=== PATIENT | male | born 1955 | race African-American/Black ===

== ENCOUNTER 2023-09-10 08:30 | Day surgery (SDC) | payer MEDICARE ==
[2023-09-10] MEDS ORDERED: MIDAZOLAM HCL 2 MG/2 ML INJ ONE (09:04)
[2023-09-10] MEDS ORDERED: FENTANYL CITR 100 MCG/2 ML ONE (09:05)
[2023-09-10] MEDS ORDERED: NALOXONE HCL 2 MG/2 ML VIAL ONE (09:05)
[2023-09-10] MEDS ORDERED: FLUMAZENIL 0.1 MG/ML (5 mL VIAL) IV ONE (09:07)
[2023-09-10] MEDS ORDERED: NA CHLORIDE 0.9% 1,000 ML ONE (09:11)
[2023-09-10 09:14] LABS: Absolute Lymphocytes (CBC) 4.7 K/uL (0.7-4.9); Hematocrit 34.6 % (39.6-49.0); Lymphocytes % 2.6 % (15.3-44.8); MCV 87.6 fL (80-100); MPV 8.3 fL (7.6-11.3); Platelets 520 thou/uL (152-406); RBC Red Blood Cell Count 3.95 M/uL (4.33-5.43)
[2023-09-10 09:55] LABS: Protime INR 1.15
[2023-09-10 11:51] LABS: Anisocytosis 1+; Blood Morphology Comment NOTED (NOT SEEN); Platelet Estimate INCR; Platelets, Giant FEW
[2023-09-10 12:23] LABS: Cytogenetics, Bone Marrow SENT
--- NOTE | 2023-09-10 14:24 | RAD REPORT ---
EXAM DESCRIPTION: - Bone Marrow Biopsy - 09/10/2023 11:52 am CLINICAL HISTORY: bone marrow bx COMPARISON: No comparisons FINDINGS: Preoperative diagnosis: CML Post operative diagnosis: Same Conscious Sedation: 1 milligram Versed, and 50 microgram fentanyl. Total sedation time: 22 minutes. Patient was continuously monitored by nursing staff. Contrast used: NONE Estimated blood loss: less than 5 mL Specimens: 1 bone core. 1 mL or less bone marrow aspirate. Informed consent was obtained, following discussion of the risks and benefits of the procedure with t he patient. The patient was placed prone on the table and the right sacral area was prepped and drape d in the usual sterile fashion. At least 10 mL of 1% lidocaine was infiltrated into the subcutaneous tissues for local anesthesia. Under computed tomographic guidance, an 11 gauge bone biopsy needle was advanced into the right iliac bone and a satisfactory bone core was obtained. Continuous attempts at aspiration of the bone marrow, including exchange of the needle for a longer 13 gauge needle yielded only less than 1 mL of bone marrow aspirate. The aspirated material was received by the lab demarcus sy. Postprocedure imaging demonstrated no complications. Samples were given to pathology for analysis. Th e patient tolerated the procedure without immediate complication and transferred to the recovery room in stable condition. IMPRESSION: Technically successful CT-guided bone marrow aspiration, although the amount of bone mar row aspirate provided was scant. Satisfactory bone core was obtained. All CT scans are performed using dose optimization technique as appropriate and may include automated exposure control or mA/KV adjustment according to patient size.
== END 2023-09-10 13:40 | disposition home or self-care (01) ==
LOC: DS 08:30
PROVIDERS: ATTEND Internal Medicine Hematology & Oncology
DX: C92.10 Chronic myeloid leukemia, BCR/ABL-positive, not having achieved remission (principal); E66.9 Obesity, unspecified; Z71.3 Dietary counseling and surveillance
CPT/HCPCS: 36415; 88313; 85610; 82947; 88305; 88311; 85730; 38221; J2250; J3010; J7030; J2310